=== PATIENT | female | born 1985 ===

== ENCOUNTER 2018-10-10 15:37 | Outpatient (RCR) | payer OTHER | END 2018-10-31 09:47 | disposition home or self-care (01) | LOC: WSOH 15:37 | DX: S61.311A Laceration without foreign body of left index finger with damage to nail, initial encounter (principal); W26.0XXA Contact with knife, initial encounter; Y93.G1 Activity, food preparation and clean up; Y92.214 College as the place of occurrence of the external cause; Y99.0 Civilian activity done for income or pay ==